=== PATIENT | male | born 1990 | race Caucasian/White ===

== ENCOUNTER 2024-12-24 10:18 | Emergency (ER) | payer OTHER, SELFPAY ==
[2024-12-24 10:22] VITALS: BP 123/77; PULSE 80; RESP 14; TEMP 36.6; O2SAT 100; BMI 23.7
--- NOTE | 2024-12-24 10:27 | DI.RAD.S_ITS ---
PROCEDURE: XR ANKLE LT MIN 3V INDICATIONS: ankle injury TECHNIQUE: 3 views of the ankle were acquired. COMPARISON: None. FINDINGS: Bones: No fractures or dislocations. Ankle mortise is normally aligned. No suspicious bony lesions. Soft tissues: No tibiotalar joint effusion. Achilles tendon appears normal. IMPRESSION: No acute bony abnormality or significant effusion. Dictated by: Catrina Ervin MD, PhD on 12/24/2024 at 11:14 Approved by: Catrina Ervin MD, PhD on 12/24/2024 at 11:14
--- NOTE | 2024-12-24 10:29 | ED_ITS ---
HPI - Extremity Injury (Lower) General Chief Complaint: Extremity Injury, Lower Stated Complaint: Twisted ankle/foot Time Seen by Provider: 12/24/24 10:20 Source: patient Mode of arrival: Ambulatory History of Present Illness HPI Narrative: 34-year-old gentleman no significant medical history misstepped yesterday fell with a twist to the left ankle in landing on his left side. He has some point tenderness at a rib just under the nipple area on the left side and significant tenderness in the left ankle. There is some contusion medially he is unable to take a step on that foot. No complaints of any other pain including upper extr emity, hip or knee Related Data Allergies Allergy/AdvReac Type Severity Reaction Status Date / Time No Known Drug Allergies Allergy Verified 12/24/24 10:22 Review of Systems Review of Systems Narrative: Pertinent positive and negative findings as per HPI Patient History Social History Smoking Status: Unknown if ever smoked Smoking Status: Unknown if ever smoked Exam Initial Vital Signs Initial Vital Signs: Vital Signs Temperature 97.9 F 12/24/24 10:22 Pulse Rate 80 12/24/24 10:22 Respiratory Rate 14 12/24/24 10:22 Blood Pressure 123/77 12/24/24 10:22 Pulse Oximetry 100 12/24/24 10:22 Oxygen Delivery Method Room Air 12/24/24 10:22 General: Alert appropriate in no acute distress Respiratory: Able to speak in full sentences, no obvious respiratory distress Chest: No obvious bruising, contusion, subcutaneous air and no tenderness with ribcage manipulation or pressure along the area of initial concern Skin: No obvious rashes, warm and dry Neurologic: Grossly intact no obvious asymmetries or abnormalities Psych: appropriate insight and affect, cooperative extremity: Left ankle is slightly swollen, ecchymosis the medial aspect Slight tenderness to the medial malleoli, unable to bear weight. Neurovascularly intact. Course Orders Ordered: ED Orders 12/24/24 10:27 XR ankle LT min 3V Stat Discontinued Medications Acetaminophen (Acetaminophen 325 Mg Tablet) 325 mg PO NOW ONE Stop: 12/24/24 10:28 Last Admin: 12/24/24 10:32 Dose: 325 mg Documented By: LILLIE Ibuprofen (Ibuprofen 400 Mg Tablet) 400 mg PO NOW ONE Stop: 12/24/24 10:28 Last Admin: 12/24/24 10:32 Dose: 400 mg Documented By: LILLIE Vital Signs Vital signs: Vital Signs - 8 hr 12/24/24 10:22 Temperature 97.9 F Pulse Rate 80 Respiratory Rate 14 Blood Pressure 123/77 Pulse Oximetry 100 Oxygen Delivery Method Room Air MDM - Extremity Injury (Lower) MDM Narrative Medical decision making narrative: 34-year-old gentleman with a fall yesterday after twisting his ankle while putting his left foot down. Some minor chest wall pain with no evidence of rib fractures or other contusion and no indication for further workup at this time. Ankle is meeting criteria for ankle x-ray given the fact that he is unable to bear weight. X-rays are unremarkable. No evidence of fractures. He is placed in an air splint, By nursing staff. He is neurovascularly intact pre and post placement. given instructions on ankle sprain. Anticipated course of recovery including anticipated time for resolution of pain and return to function reviewed. discussed ice, ibuprofen, Tylenol, gentle and early mobilization and follow up with his primary care physician if he is not improving. He is safe for discharge Discharge Plan Departure Patient Disposition: Home Clinical Impression: Ankle sprain and strain Instructions: DI for Ankle Sprain Activity Restrictions/Additional Instructions: thank you for coming in today sorry that you fell yesterday in your ankle is still bothering you. Fortunately the x-rays show no evidence of a fracture. You were placed in an ankle air splint, the simply help support the ankle while the tendons heal. You can use it for as long as it is comfortable. Keeping the leg elevated, using ice and 400 mg of ibuprofen (2 [id number] pills) and 1 Tylenol every 6 hours can be very helpful in controlling pain. gentle but early mobilization meeting gentle ankle circles and walking as you are able to tolerate, is appropriate If you find that you are getting worse or develop any new symptoms, please feel free to return to the emergency department for further evaluation. Stand Alone Forms: Patient Portal/API/Survey
[2024-12-24] MEDS: ACETAMINOPHEN 325 MG TABLET PO (10:32)
[2024-12-24] MEDS: IBUPROFEN 400 MG TABLET PO (10:32)
[2024-12-24 11:28] VITALS: BP 116/58; PULSE 66; RESP 16; TEMP 37; O2SAT 99
== END 2024-12-24 11:28 | disposition home or self-care (01) ==
PROVIDERS: Emergency Provider Emergency Medicine
DX: S93.402A Sprain of unspecified ligament of left ankle, initial encounter (principal); S96.912A Strain of unspecified muscle and tendon at ankle and foot level, left foot, initial encounter; X50.1XXA Overexertion from prolonged static or awkward postures, initial encounter
CPT/HCPCS: 29540; 73610; 99283